=== PATIENT | male | born 1950 | race Caucasian/White ===

== ENCOUNTER → 2016-10-27 | Outpatient (CLI) | payer MEDICARE | END | disposition disaster alternative care site (69) | LOC: GRAD 09:20 | DX: R20.0 Anesthesia of skin (principal); I65.22 Occlusion and stenosis of left carotid artery; M50.33 Other cervical disc degeneration, cervicothoracic region; M40.40 Postural lordosis, site unspecified; Z86.73 Personal history of transient ischemic attack (TIA), and cerebral infarction without residual deficits ==

== ENCOUNTER → 2017-01-20 | Outpatient (CLI) | payer MEDICARE ==
--- NOTE | ~2017-01-20 | NDGEN ---
PATIENT'S NAME: LUCY BRAND [facility] AGE: 66 Y [address] ROOM: [place], [place] [id number] LOCATION: [facility] ADMIT DATE: 01/20/2017 Neurodiagnostics DISCHARGE DATE: FAMILY PHYSICIAN: Aster Ding MD ATTENDING PHYSICIAN: GRADY TUCKER PROCEDURE: NERVE CONDUCTION EMG OF THE 4 LIMBS. DATE OF PROCEDURE: 01/20/2017 INDICATIONS: Mr. Brand is a 66-year-old male patient, who had a mild stroke, affected him with some mild left upper extremity weakness. He also has numbness and tingling into his feet and above the ankles, mostly relegated to his distal lower legs. These nerve conduction studies were done to rule out any evidence of focal neuropathy, cervical radiculopathy, lumbar radiculopathy, or polyneuropathy of his lower extremities. FINDINGS: The median, ulnar, motor, and sensory nerves were stimulated as well as peroneal motor, tibial motor, and sural sensory nerves tested. In the median motor studies, there was slightly delayed right motor onset latencies to around 4.8 milliseconds, however, the amplitudes were well preserved and nerve conduction velocities were within normal limits. The left median motor onset latencies were only borderline slow but good amplitudes were present and nerve conduction velocities were normal. The ulnar motor studies were also within normal limits. The median sensory nerve action potentials, both right and left showed slowing at the wrist consistent with likely mild carpal tunnel syndrome. In the lower extremities, there was significant slowing of motor onset latencies. In the left peroneal motor, the onset latencies were delayed at 11.1 milliseconds with secondarily low amplitudes less than 1 millivolt. The same was seen in the right peroneal motor, left tibial, and right tibial motor nerves. The slowing was into the range of the 30s and even as low as into the 20s m/sec range. The sural sensory nerve action potential was low in amplitude on the left, but surprisingly intact on the right. Needle EMG was placed into the bilateral lower extremities symmetrically and found evidence for reduced recruitment of the bilateral gastrocnemius muscles. Tibialis anterior muscle on the left, as well as abnormal spontaneous electrical activity seen in the left medial gastrocnemius muscles consistent with fibrillation potentials and positive sharp waves. These findings of decreased recruitment in the setting of some isolated fibrillation potential seen in the gastrocnemius muscle to be seen in very severe lumbar PATIENT'S NAME: LUCY BRAND [facility] AGE: 66 Y [address] ROOM: [place], [place] [id number] LOCATION: [facility] ADMIT DATE: 01/20/2017 Neurodiagnostics DISCHARGE DATE: FAMILY PHYSICIAN: Aster Ding MD ATTENDING PHYSICIAN: GRADY TUCKER radiculopathies, however, the distal symmetric nature of his symptoms of numbness, atrophy of the muscle on the base of the feet, as well as very severe slowing of the motor onset latencies, severe secondary decrease in compound motor action potentials amplitudes possibly suggest a demyelinating peripheral neuropathy. If this is a progressive type of picture, one would consider an idiopathic demyelinating polyneuropathy. However, the patient really does not have symptoms that are suggestive of this due to the pathology seen in his feet. 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 Otherwise, there was no evidence to support a cervical radiculopathy based upon the findings today. MD GIOVANI KENNY/ric /[id number] dtt: 02/02/17 1652 , SEMAJ [id number] dtd: 01/22/17 1949
== END | disposition disaster alternative care site (69) ==
LOC: GNEU 15:46
DX: R53.1 Weakness (principal)